=== PATIENT | male | born 1940 | race African-American/Black ===

== ENCOUNTER 2020-09-02 16:05 | Inpatient (IN) ==
[2020-09-02] MEDS ORDERED: SODIUM CHLORIDE 0.9% 1,000 ML IV STA (16:44)
[2020-09-02 17:01] LABS: Basophils % 0.1 % (0.0-0.8); Hematocrit 25.6 VOL% (42.0-52.0); Hemoglobin 8.2 GM/DL (14.0-18.0); Immature Granulocytes % 0.8 %; Immature Granulocytes Absolute 0.08 #; Lymphocytes # 1.3 10*3/uL (1.4-4.0); Lymphocytes % 13.4 % (21.2-54.2); Mean Corpuscular Volume 90.1 FL (87-102); Mean Platelet Volume 10.3 FL (9.6-12.0); Monocytes % 6.1 % (1.7-12.7); Neutrophils % 79.6 % (38.7-73.9); Platelet Count 195 T/CUMM (130-400); Red Blood Count 2.84 MC/CUMM (3.8-5.5); Red Cell Distribution Width 18.5 % (9.3-17.3); White Blood Count 9.8 T/CUMM (4-12)
[2020-09-02 17:17] LABS: Amorphous Crystals,Urine Occasional /HPF (Few); Bilirubin,Urine Negative (Negative); Blood, Urine Large mg/dL (Negative); Glucose,Urine (UA) Negative (Negative); Hyaline Casts,Urine 1 /LPF (0-3); Ketones,Urine Negative (Negative); Mucus,Urine Occasional /LPF (Occasional); Nitrite,Urine Negative (Negative); Protein,Urine 30 MG/DL; Urine Appearance CLOUDY (Clear); Urine Color Amber (Yellow); Urine Specific Gravity 1.016 (1.001-1.035); Urine Urobilinogen < 2.0 EU/DL (0.2-1.0); WBC,Urine 1 /HPF (0-6)
[2020-09-02 17:25] LABS: Albumin 2.9 G/DL (3.4-5.0); Bilirubin,Total 0.8 MG/DL (0.2-1.0); Calcium 8.6 MG/DL (8.5-10.1); Osmolality,Calculated 282.2 MOS/KG (273-304); Total Protein 7.2 G/DL (6.4-8.3)
[2020-09-02] MEDS ORDERED: GLUCAGON 1 MG VIAL IM PRN (18:41)
[2020-09-02] MEDS ORDERED: SODIUM CHLORIDE 0.9% 1,000 ML IV PRN (18:41)
[2020-09-02] MEDS ORDERED: DEXTROSE 50% 25 GM/50 ML VIAL IV PRN (18:41)
[2020-09-02] MEDS ORDERED: ONDANSETRON 4 MG/2 ML VIAL IV PRN (18:41)
[2020-09-02] MEDS ORDERED: DICLOFENAC SODIUM 75 MG TABLET PO PRN (18:59)
[2020-09-02] MEDS: BUDESONIDE/FORMOTEROL 160-4.5 INHALER 6 GM INH SCH (22:20)
[2020-09-02] MEDS: INSULIN REGULAR 100 UNIT/ML SUBCUT SCH (22:20)
[2020-09-03 01:02] LABS: Hematocrit 26.2 VOL% (42.0-52.0); Hemoglobin 8.3 GM/DL (14.0-18.0)
[2020-09-03] MEDS ORDERED: FUROSEMIDE 40 MG/4 ML VIAL IV ONE (03:18)
[2020-09-03 06:18] LABS: Hematocrit 29.8 VOL% (42.0-52.0); Hemoglobin 9.5 GM/DL (14.0-18.0)
[2020-09-03] MEDS: ALBUTEROL INHALER 18 GM INH SCH ×3 (06:25→18:38)
[2020-09-03 06:48] LABS: Albumin 2.5 G/DL (3.4-5.0); Bilirubin,Total 0.8 MG/DL (0.2-1.0); Calcium 8.3 MG/DL (8.5-10.1); Osmolality,Calculated 280.1 MOS/KG (273-304); Total Protein 6.7 G/DL (6.4-8.3)
[2020-09-03 07:04] LABS: Ferritin 4670.7 ng/ml (26-388)
[2020-09-03] MEDS: INSULIN REGULAR 100 UNIT/ML SUBCUT SCH ×4 (08:25→20:46)
[2020-09-03] MEDS ORDERED: amLODIPine 10 MG TABLET PO SCH (09:00)
[2020-09-03] MEDS ORDERED: DEXAMETHASONE 10 MG/1 ML VIAL IV SCH (09:00)
[2020-09-03] MEDS ORDERED: PANTOPRAZOLE 40 MG TABLET PO SCH (09:00)
[2020-09-03] MEDS: TERAZOSIN 5 MG CAPSULE PO SCH (09:22)
[2020-09-03] MEDS: BICALUTAMIDE 50 MG TABLET PO SCH (09:22)
[2020-09-03] MEDS: ASCORBIC ACID 500 MG TABLET PO SCH (09:22)
[2020-09-03] MEDS: lisinopriL 10 MG TABLET PO SCH (09:22)
[2020-09-03] MEDS: FUROSEMIDE 40 MG TABLET PO SCH (09:22)
[2020-09-03] MEDS: ZINC SULFATE 220 MG CAPSULE PO SCH (09:22)
[2020-09-03 13:14] LABS: Hematocrit 28.6 VOL% (42.0-52.0); Hemoglobin 9.4 GM/DL (14.0-18.0)
[2020-09-03] MEDS: BUDESONIDE/FORMOTEROL 160-4.5 INHALER 6 GM INH SCH ×2 (13:15→21:14)
[2020-09-03 20:03] LABS: Hematocrit 29.3 VOL% (42.0-52.0); Hemoglobin 9.6 GM/DL (14.0-18.0)
[2020-09-03] MEDS: ACETAMINOPHEN 325 MG TABLET PO PRN (21:14)
[2020-09-04] MEDS: ALBUTEROL INHALER 18 GM INH SCH ×4 (00:30→21:08)
[2020-09-04 08:20] LABS: Calcium 8.5 MG/DL (8.5-10.1)
[2020-09-04] MEDS: INSULIN REGULAR 100 UNIT/ML SUBCUT SCH ×5 (09:47→21:08)
[2020-09-04] MEDS: DEXAMETHASONE 4 MG/1 ML VIAL IV SCH (09:47)
[2020-09-04] MEDS: BICALUTAMIDE 50 MG TABLET PO SCH (09:47)
[2020-09-04] MEDS: TERAZOSIN 5 MG CAPSULE PO SCH (09:47)
[2020-09-04] MEDS: BUDESONIDE/FORMOTEROL 160-4.5 INHALER 6 GM INH SCH ×2 (09:48→21:08)
[2020-09-04] MEDS: PANTOPRAZOLE 40 MG VIAL IV SCH (09:48)
[2020-09-04] MEDS: ASCORBIC ACID 500 MG TABLET PO SCH (09:48)
[2020-09-04] MEDS: FUROSEMIDE 40 MG TABLET PO SCH (09:48)
[2020-09-04] MEDS ORDERED: TUBERCULIN SKIN TEST 0.1 ML SYRINGE INTRADERM ONE (10:33)
[2020-09-04] MEDS ORDERED: POLYETHYLENE GLYCOL POWDER 17 GM PACK PO SCH (12:00)
[2020-09-04] MEDS: POLYETHYLENE GLYCOL POWDER 17 GM PACK PO PRN (12:32)
[2020-09-05] MEDS: ALBUTEROL INHALER 18 GM INH SCH ×4 (01:47→20:10)
[2020-09-05 04:04] LABS: Hematocrit 28.9 VOL% (42.0-52.0); Hemoglobin 9.1 GM/DL (14.0-18.0); Immature Granulocytes % 2.4 %; Immature Granulocytes Absolute 0.21 #; Lymphocytes # 1.1 10*3/uL (1.4-4.0); Lymphocytes % 12.3 % (21.2-54.2); Mean Corpuscular HGB Conc 31.5 GM/DL (32-36); Mean Platelet Volume 10.5 FL (9.6-12.0); Monocytes % 5.4 % (1.7-12.7); Neutrophils % 79.9 % (38.7-73.9); Platelet Count 173 T/CUMM (130-400); Red Blood Count 3.21 MC/CUMM (3.8-5.5); Red Cell Distribution Width 17.6 % (9.3-17.3); White Blood Count 8.7 T/CUMM (4-12)
[2020-09-05 04:37] LABS: Calcium 8.6 MG/DL (8.5-10.1); Osmolality,Calculated 284.1 MOS/KG (273-304)
[2020-09-05 05:04] LABS: Band Neutrophils 2 % (0-10); Lymphocytes 7 % (20-55); Myelocytes 1 %; Segmented Neutrophils 82 % (50-85); Total Cells Counted 100
[2020-09-05 05:05] LABS: Hypochromasia 1+
[2020-09-05 05:11] LABS: Polychromasia Slight
[2020-09-05 05:12] LABS: Microcytosis 1+; Platelet Estimate Adequate
[2020-09-05] MEDS: ZIPRASIDONE 20 MG/1 ML VIAL IM PRN (05:25)
[2020-09-05] MEDS: BUDESONIDE/FORMOTEROL 160-4.5 INHALER 6 GM INH SCH ×2 (08:00→20:11)
[2020-09-05] MEDS: INSULIN REGULAR 100 UNIT/ML SUBCUT SCH ×4 (08:11→20:11)
[2020-09-05] MEDS ORDERED: LIDOCAINE 2% 5 ML VIAL ONE (09:00)
[2020-09-05] MEDS ORDERED: propofoL 200 MG/20 ML VIAL IV ONE (09:00)
[2020-09-05] MEDS ORDERED: ETOMIDATE 20 MG/10 ML VIAL IV ONE (09:00)
[2020-09-05] MEDS: DEXAMETHASONE 4 MG/1 ML VIAL IV SCH (09:50)
[2020-09-05] MEDS: PANTOPRAZOLE 40 MG VIAL IV SCH (09:50)
[2020-09-05] MEDS: TERAZOSIN 5 MG CAPSULE PO SCH (14:04)
[2020-09-05] MEDS: FUROSEMIDE 40 MG TABLET PO SCH (14:04)
[2020-09-05] MEDS: lisinopriL 10 MG TABLET PO SCH (14:04)
[2020-09-05] MEDS: BICALUTAMIDE 50 MG TABLET PO SCH (14:04)
[2020-09-05] MEDS: LACTATED RINGERS 1,000 ML IV SCH (14:04)
[2020-09-05] MEDS: ASCORBIC ACID 500 MG TABLET PO SCH (14:05)
[2020-09-05] MEDS: ZINC SULFATE 220 MG CAPSULE PO SCH (14:05)
[2020-09-05] MEDS: DESITIN 4OZ/NYSTATIN 15 GRAM MIXTURE PASTE TOP SCH ×2 (14:05→20:11)
[2020-09-06] MEDS: ALBUTEROL INHALER 18 GM INH SCH ×4 (00:46→18:30)
[2020-09-06 05:41] LABS: Hematocrit 27.3 VOL% (42.0-52.0); Hemoglobin 8.5 GM/DL (14.0-18.0); Immature Granulocytes % 1.7 %; Immature Granulocytes Absolute 0.11 #; Lymphocytes # 0.9 10*3/uL (1.4-4.0); Lymphocytes % 14.7 % (21.2-54.2); Mean Corpuscular HGB Conc 31.1 GM/DL (32-36); Mean Corpuscular Volume 92.5 FL (87-102); Monocytes % 5.4 % (1.7-12.7); Neutrophils % 78.2 % (38.7-73.9); Platelet Count 146 T/CUMM (130-400); Red Blood Count 2.95 MC/CUMM (3.8-5.5); Red Cell Distribution Width 17.8 % (9.3-17.3); White Blood Count 6.3 T/CUMM (4-12)
[2020-09-06 06:03] LABS: Albumin 2.3 G/DL (3.4-5.0); Bilirubin,Total 0.9 MG/DL (0.2-1.0); Calcium 8.5 MG/DL (8.5-10.1)
[2020-09-06 07:06] LABS: Band Neutrophils 2 % (0-10); Hypersegmented Neutrophil Few; Hypochromasia Slight; Lymphocytes 13 % (20-55); Metamyelocytes 2 %; Platelet Estimate Decreased; Segmented Neutrophils 80 % (50-85); Total Cells Counted 100
[2020-09-06] MEDS: TERAZOSIN 5 MG CAPSULE PO SCH (08:37)
[2020-09-06] MEDS: LACTATED RINGERS 1,000 ML IV SCH (08:37)
[2020-09-06] MEDS: lisinopriL 10 MG TABLET PO SCH (08:37)
[2020-09-06] MEDS: FUROSEMIDE 40 MG TABLET PO SCH (08:38)
[2020-09-06] MEDS: BICALUTAMIDE 50 MG TABLET PO SCH (08:38)
[2020-09-06] MEDS: PANTOPRAZOLE 40 MG VIAL IV SCH (08:38)
[2020-09-06] MEDS: DEXAMETHASONE 4 MG/1 ML VIAL IV SCH (08:38)
[2020-09-06] MEDS: ASCORBIC ACID 500 MG TABLET PO SCH (08:38)
[2020-09-06] MEDS: DESITIN 4OZ/NYSTATIN 15 GRAM MIXTURE PASTE TOP SCH ×2 (08:38→21:07)
[2020-09-06] MEDS: BUDESONIDE/FORMOTEROL 160-4.5 INHALER 6 GM INH SCH ×2 (08:39→21:06)
[2020-09-06] MEDS: INSULIN REGULAR 100 UNIT/ML SUBCUT SCH ×4 (09:32→21:08)
[2020-09-06] MEDS: ZIPRASIDONE 20 MG/1 ML VIAL IM PRN (20:19)
[2020-09-07] MEDS: ALBUTEROL INHALER 18 GM INH SCH ×4 (01:14→18:15)
[2020-09-07] MEDS: ACETAMINOPHEN 325 MG TABLET PO PRN ×3 (01:46→09:17)
[2020-09-07] MEDS: INSULIN REGULAR 100 UNIT/ML SUBCUT SCH ×4 (06:45→20:38)
[2020-09-07] MEDS: BICALUTAMIDE 50 MG TABLET PO SCH (08:39)
[2020-09-07] MEDS: ZINC SULFATE 220 MG CAPSULE PO SCH (08:39)
[2020-09-07] MEDS: ASCORBIC ACID 500 MG TABLET PO SCH (08:39)
[2020-09-07] MEDS: DEXAMETHASONE 4 MG/1 ML VIAL IV SCH (08:40)
[2020-09-07] MEDS: PANTOPRAZOLE 40 MG VIAL IV SCH (08:40)
[2020-09-07] MEDS: LACTATED RINGERS 1,000 ML IV SCH (08:41)
[2020-09-07] MEDS: BUDESONIDE/FORMOTEROL 160-4.5 INHALER 6 GM INH SCH ×2 (08:49→20:39)
[2020-09-07] MEDS: DESITIN 4OZ/NYSTATIN 15 GRAM MIXTURE PASTE TOP SCH ×2 (08:49→20:39)
[2020-09-07 08:58] LABS: Basophils % 0.2 % (0.0-0.8); Hematocrit 24.6 VOL% (42.0-52.0); Immature Granulocytes % 1.6 %; Lymphocytes # 0.9 10*3/uL (1.4-4.0); Lymphocytes % 13.8 % (21.2-54.2); Mean Corpuscular HGB Conc 32.5 GM/DL (32-36); Mean Corpuscular Volume 89.5 FL (87-102); Mean Platelet Volume 10.8 FL (9.6-12.0); Monocytes % 7.2 % (1.7-12.7); Neutrophils % 77.2 % (38.7-73.9); Platelet Count 156 T/CUMM (130-400); Red Blood Count 2.75 MC/CUMM (3.8-5.5); White Blood Count 6.2 T/CUMM (4-12)
[2020-09-07 09:27] LABS: Band Neutrophils 24 % (0-10); Lymphocytes 11 % (20-55); Macrocytosis 1+; Myelocytes 1 %; Platelet Estimate Normal; Segmented Neutrophils 59 % (50-85); Total Cells Counted 100
[2020-09-07 09:28] LABS: Anisocytosis 2+; Polychromasia Slight
[2020-09-07 09:36] LABS: Albumin 2.1 G/DL (3.4-5.0); Bilirubin,Total 1.9 MG/DL (0.2-1.0); Calcium 8.2 MG/DL (8.5-10.1); Total Protein 5.9 G/DL (6.4-8.3)
[2020-09-07] MEDS: TERAZOSIN 5 MG CAPSULE PO SCH ×2 (10:10→10:13)
[2020-09-07] MEDS: FUROSEMIDE 40 MG TABLET PO SCH ×2 (10:11→10:12)
[2020-09-07] MEDS: lisinopriL 10 MG TABLET PO SCH (10:12)
[2020-09-07 11:36] LABS: Bacteria,Urine Many /HPF (Few); Bilirubin,Urine Negative (Negative); Blood, Urine Negative (Negative); Glucose,Urine (UA) Negative (Negative); Hyaline Casts,Urine 1 /LPF (0-3); Ketones,Urine Negative (Negative); Mucus,Urine Occasional /LPF (Occasional); Nitrite,Urine Negative (Negative); Protein,Urine 30 MG/DL; RBC,Urine 3 /HPF (0-4); Squamous Epithelial Cell,Urine Occasional /HPF (0-10); Urine Appearance Slightly Hazy (Clear); Urine Color Amber (Yellow); Urine Specific Gravity 1.015 (1.001-1.035); WBC,Urine 153 /HPF (0-6)
[2020-09-07] MEDS: APIXABAN 2.5 MG TABLET PO SCH ×2 (12:06→20:39)
[2020-09-07] MEDS: PANTOPRAZOLE 40 MG TABLET PO SCH (20:39)
[2020-09-08] MEDS: ALBUTEROL INHALER 18 GM INH SCH ×4 (02:37→18:07)
[2020-09-08 04:08] LABS: Basophils % 0.1 % (0.0-0.8); Hematocrit 25.8 VOL% (42.0-52.0); Hemoglobin 8.3 GM/DL (14.0-18.0); Immature Granulocytes % 1.8 %; Immature Granulocytes Absolute 0.15 #; Lymphocytes # 0.9 10*3/uL (1.4-4.0); Lymphocytes % 10.8 % (21.2-54.2); Mean Corpuscular HGB Conc 32.2 GM/DL (32-36); Mean Corpuscular Volume 89.3 FL (87-102); Mean Platelet Volume 11.3 FL (9.6-12.0); Monocytes % 4.5 % (1.7-12.7); Neutrophils % 82.8 % (38.7-73.9); Platelet Count 189 T/CUMM (130-400); Red Blood Count 2.89 MC/CUMM (3.8-5.5); White Blood Count 8.2 T/CUMM (4-12)
[2020-09-08 04:25] LABS: Calcium 8.9 MG/DL (8.5-10.1); Osmolality,Calculated 291.8 MOS/KG (273-304)
[2020-09-08] MEDS: ACETAMINOPHEN 325 MG TABLET PO PRN (04:38)
[2020-09-08 05:03] LABS: Anisocytosis Slight; Band Neutrophils 4 % (0-10); Lymphocytes 11 % (20-55); Macrocytosis Slight; Metamyelocytes 2 %; Platelet Estimate Normal; Polychromasia Slight; Segmented Neutrophils 76 % (50-85); Total Cells Counted 100
[2020-09-08] MEDS: INSULIN REGULAR 100 UNIT/ML SUBCUT SCH ×4 (09:23→20:18)
[2020-09-08] MEDS: BICALUTAMIDE 50 MG TABLET PO SCH (09:24)
[2020-09-08] MEDS: DEXAMETHASONE 4 MG/1 ML VIAL IV SCH (09:24)
[2020-09-08] MEDS: APIXABAN 2.5 MG TABLET PO SCH ×2 (09:25→20:16)
[2020-09-08] MEDS: TERAZOSIN 5 MG CAPSULE PO SCH (09:25)
[2020-09-08] MEDS: PANTOPRAZOLE 40 MG TABLET PO SCH ×2 (09:25→20:18)
[2020-09-08] MEDS: FUROSEMIDE 40 MG TABLET PO SCH (09:25)
[2020-09-08] MEDS: BUDESONIDE/FORMOTEROL 160-4.5 INHALER 6 GM INH SCH ×2 (09:25→20:24)
[2020-09-08] MEDS: DESITIN 4OZ/NYSTATIN 15 GRAM MIXTURE PASTE TOP SCH ×2 (09:25→20:24)
[2020-09-08] MEDS: lisinopriL 10 MG TABLET PO SCH (09:25)
[2020-09-08] MEDS: ASCORBIC ACID 500 MG TABLET PO SCH (09:25)
[2020-09-08] MEDS: LORazepam 1 MG TABLET PO PRN (20:52)
[2020-09-09] MEDS: ALBUTEROL INHALER 18 GM INH SCH ×4 (00:49→22:21)
[2020-09-09 05:15] LABS: Basophils % 0.3 % (0.0-0.8); Hematocrit 22.1 VOL% (42.0-52.0); Hemoglobin 7.3 GM/DL (14.0-18.0); Immature Granulocytes % 1.5 %; Immature Granulocytes Absolute 0.13 #; Lymphocytes # 0.9 10*3/uL (1.4-4.0); Lymphocytes % 9.9 % (21.2-54.2); Mean Corpuscular Volume 87.7 FL (87-102); Monocytes % 4.5 % (1.7-12.7); Neutrophils % 83.8 % (38.7-73.9); Platelet Count 179 T/CUMM (130-400); Red Blood Count 2.52 MC/CUMM (3.8-5.5); Red Cell Distribution Width 18.5 % (9.3-17.3); White Blood Count 8.9 T/CUMM (4-12)
[2020-09-09 05:51] LABS: Band Neutrophils 1 % (0-10); Lymphocytes 15 % (20-55); Platelet Estimate Adequate; Segmented Neutrophils 78 % (50-85); Total Cells Counted 100
[2020-09-09 05:52] LABS: Hypochromasia Slight; Macrocytosis Slight
[2020-09-09] MEDS: PANTOPRAZOLE 40 MG TABLET PO SCH ×2 (08:13→22:22)
[2020-09-09] MEDS: TERAZOSIN 5 MG CAPSULE PO SCH (08:13)
[2020-09-09] MEDS: FUROSEMIDE 40 MG TABLET PO SCH (08:13)
[2020-09-09] MEDS: ASCORBIC ACID 500 MG TABLET PO SCH (08:13)
[2020-09-09] MEDS: ZINC SULFATE 220 MG CAPSULE PO SCH (08:13)
[2020-09-09] MEDS: BICALUTAMIDE 50 MG TABLET PO SCH (08:13)
[2020-09-09] MEDS: APIXABAN 2.5 MG TABLET PO SCH ×2 (08:13→22:22)
[2020-09-09] MEDS: lisinopriL 10 MG TABLET PO SCH (08:13)
[2020-09-09] MEDS: DEXAMETHASONE 4 MG/1 ML VIAL IV SCH (08:14)
[2020-09-09] MEDS: BUDESONIDE/FORMOTEROL 160-4.5 INHALER 6 GM INH SCH ×2 (08:14→22:22)
[2020-09-09] MEDS: DESITIN 4OZ/NYSTATIN 15 GRAM MIXTURE PASTE TOP SCH ×2 (08:14→22:22)
[2020-09-09] MEDS: cefTRIAXone 1,000 MG in SYRINGE 1 EACH IV SCH (09:16)
[2020-09-09] MEDS: INSULIN REGULAR 100 UNIT/ML SUBCUT SCH ×4 (09:17→22:22)
[2020-09-09] MEDS: ACETAMINOPHEN 325 MG TABLET PO PRN (09:18)
[2020-09-09] MEDS: metroNIDAZOLE INJ 500 MG in PREMIX 1 EACH IV SCH ×2 (16:08→23:31)
[2020-09-10] MEDS: ALBUTEROL INHALER 18 GM INH SCH ×4 (02:55→18:29)
[2020-09-10 03:50] LABS: Basophils % 0.1 % (0.0-0.8); Hematocrit 21.1 VOL% (42.0-52.0); Hemoglobin 6.7 GM/DL (14.0-18.0); Immature Granulocytes % 1.1 %; Immature Granulocytes Absolute 0.11 #; Lymphocytes # 0.9 10*3/uL (1.4-4.0); Lymphocytes % 8.6 % (21.2-54.2); Mean Corpuscular HGB Conc 31.8 GM/DL (32-36); Mean Corpuscular Volume 90.6 FL (87-102); Mean Platelet Volume 10.4 FL (9.6-12.0); Neutrophils % 85.2 % (38.7-73.9); Platelet Count 182 T/CUMM (130-400); Red Blood Count 2.33 MC/CUMM (3.8-5.5); Red Cell Distribution Width 18.9 % (9.3-17.3); White Blood Count 9.9 T/CUMM (4-12)
[2020-09-10 04:42] LABS: Anisocytosis 1+; Hypochromasia 1+; Lymphocytes 14 % (20-55); Macrocytosis 1+; Metamyelocytes 1 %; Segmented Neutrophils 82 % (50-85); Total Cells Counted 100
[2020-09-10 04:43] LABS: Ovalocytes Slight; Platelet Estimate Adequate; Tear Drop Cells Slight
[2020-09-10] MEDS: INSULIN REGULAR 100 UNIT/ML SUBCUT SCH ×4 (07:50→21:20)
[2020-09-10] MEDS ORDERED: SODIUM CHLORIDE 0.9% 1,000 ML IV PRN (08:27)
[2020-09-10 08:38] LABS: Bilirubin,Total 1.2 MG/DL (0.2-1.0); Calcium 8.8 MG/DL (8.5-10.1); Osmolality,Calculated 295.8 MOS/KG (273-304); Total Protein 6.3 G/DL (6.4-8.3)
[2020-09-10] MEDS: DESITIN 4OZ/NYSTATIN 15 GRAM MIXTURE PASTE TOP SCH ×2 (09:36→21:20)
[2020-09-10] MEDS: BUDESONIDE/FORMOTEROL 160-4.5 INHALER 6 GM INH SCH ×2 (09:36→21:20)
[2020-09-10] MEDS: lisinopriL 10 MG TABLET PO SCH (09:36)
[2020-09-10] MEDS: PANTOPRAZOLE 40 MG TABLET PO SCH ×2 (09:36→21:20)
[2020-09-10] MEDS: ASCORBIC ACID 500 MG TABLET PO SCH (09:36)
[2020-09-10] MEDS: FUROSEMIDE 40 MG TABLET PO SCH (09:36)
[2020-09-10] MEDS: DEXAMETHASONE 4 MG/1 ML VIAL IV SCH (09:36)
[2020-09-10] MEDS: cefTRIAXone 1,000 MG in SYRINGE 1 EACH IV SCH (09:36)
[2020-09-10] MEDS: BICALUTAMIDE 50 MG TABLET PO SCH (09:36)
[2020-09-10] MEDS: metroNIDAZOLE INJ 500 MG in PREMIX 1 EACH IV SCH ×2 (09:36→16:52)
[2020-09-10] MEDS: TERAZOSIN 5 MG CAPSULE PO SCH (09:36)
[2020-09-10] MEDS: APIXABAN 2.5 MG TABLET PO SCH (10:35)
[2020-09-10] MEDS: ACETAMINOPHEN 325 MG TABLET PO PRN (16:52)
[2020-09-10 17:35] LABS: Hematocrit 28.2 VOL% (42.0-52.0)
[2020-09-10 17:44] LABS: Hemoglobin 9.3 GM/DL (14.0-18.0)
[2020-09-11] MEDS: metroNIDAZOLE INJ 500 MG in PREMIX 1 EACH IV SCH ×3 (01:15→16:43)
[2020-09-11] MEDS: ALBUTEROL INHALER 18 GM INH SCH ×4 (01:15→18:06)
[2020-09-11 05:40] LABS: Hematocrit 26.6 VOL% (42.0-52.0); Immature Granulocytes % 1.9 %; Immature Granulocytes Absolute 0.21 #; Lymphocytes # 0.9 10*3/uL (1.4-4.0); Lymphocytes % 8.3 % (21.2-54.2); Mean Corpuscular HGB Conc 33.8 GM/DL (32-36); Mean Corpuscular Volume 87.5 FL (87-102); Mean Platelet Volume 10.1 FL (9.6-12.0); Monocytes % 3.7 % (1.7-12.7); Neutrophils % 86.1 % (38.7-73.9); Platelet Count 192 T/CUMM (130-400); Red Blood Count 3.04 MC/CUMM (3.8-5.5); White Blood Count 11.2 T/CUMM (4-12)
[2020-09-11 06:09] LABS: Band Neutrophils 6 % (0-10); Lymphocytes 2 % (20-55); Segmented Neutrophils 88 % (50-85); Total Cells Counted 100
[2020-09-11 06:10] LABS: Hypochromasia 1+; Microcytosis 1+
[2020-09-11] MEDS: INSULIN REGULAR 100 UNIT/ML SUBCUT SCH ×4 (08:14→20:04)
[2020-09-11] MEDS: cefTRIAXone 1,000 MG in SYRINGE 1 EACH IV SCH (08:54)
[2020-09-11] MEDS: DEXAMETHASONE 4 MG/1 ML VIAL IV SCH (08:54)
[2020-09-11] MEDS: DESITIN 4OZ/NYSTATIN 15 GRAM MIXTURE PASTE TOP SCH ×2 (08:55→20:06)
[2020-09-11] MEDS: BUDESONIDE/FORMOTEROL 160-4.5 INHALER 6 GM INH SCH ×2 (08:55→20:06)
[2020-09-11] MEDS: BICALUTAMIDE 50 MG TABLET PO SCH (10:13)
[2020-09-11] MEDS: TERAZOSIN 5 MG CAPSULE PO SCH (10:13)
[2020-09-11] MEDS: FUROSEMIDE 40 MG TABLET PO SCH (10:13)
[2020-09-11] MEDS: PANTOPRAZOLE 40 MG TABLET PO SCH ×2 (10:13→20:06)
[2020-09-11] MEDS: lisinopriL 10 MG TABLET PO SCH (10:13)
[2020-09-11] MEDS: ASCORBIC ACID 500 MG TABLET PO SCH (10:13)
[2020-09-11] MEDS: ZINC SULFATE 220 MG CAPSULE PO SCH (10:13)
[2020-09-11] MEDS ORDERED: LIDOCAINE 2% 5 ML VIAL ONE (10:25)
[2020-09-11] MEDS ORDERED: fentaNYL 100 MCG/2 ML VIAL ONE (10:25)
[2020-09-11] MEDS ORDERED: propofoL 200 MG/20 ML VIAL IV ONE (10:25)
[2020-09-11] MEDS ORDERED: ONDANSETRON 4 MG/2 ML VIAL ONE (10:25)
[2020-09-11] MEDS ORDERED: ETOMIDATE 40 MG/20 ML VIAL IV ONE (10:25)
[2020-09-11] MEDS ORDERED: SUCCINYLCHOLINE 200 MG/10 ML VIAL ONE (10:26)
[2020-09-11] MEDS: ACETAMINOPHEN 325 MG TABLET PO PRN (20:06)
[2020-09-11] MEDS: MORPHINE 4 MG/1 ML VIAL IV PRN (20:06)
[2020-09-12] MEDS: ACETAMINOPHEN 325 MG TABLET PO PRN ×3 (00:24→21:26)
[2020-09-12] MEDS: ALBUTEROL INHALER 18 GM INH SCH ×4 (00:24→19:45)
[2020-09-12] MEDS: MORPHINE 4 MG/1 ML VIAL IV PRN ×2 (00:24→04:26)
[2020-09-12] MEDS: metroNIDAZOLE INJ 500 MG in PREMIX 1 EACH IV SCH ×3 (00:24→16:02)
[2020-09-12 05:11] LABS: Basophils % 0.1 % (0.0-0.8); Eosinophils % 0.1 % (0.00-10.9); Hematocrit 27.2 VOL% (42.0-52.0); Hemoglobin 8.9 GM/DL (14.0-18.0); Immature Granulocytes % 2.3 %; Immature Granulocytes Absolute 0.22 #; Lymphocytes # 0.9 10*3/uL (1.4-4.0); Lymphocytes % 9.5 % (21.2-54.2); Mean Corpuscular HGB Conc 32.7 GM/DL (32-36); Mean Platelet Volume 9.7 FL (9.6-12.0); Monocytes % 4.2 % (1.7-12.7); Neutrophils % 83.8 % (38.7-73.9); Platelet Count 166 T/CUMM (130-400); Red Blood Count 3.09 MC/CUMM (3.8-5.5); Red Cell Distribution Width 17.9 % (9.3-17.3); White Blood Count 9.4 T/CUMM (4-12)
[2020-09-12 05:32] LABS: Hypochromasia 1+; Lymphocytes 8 % (20-55); Microcytosis 1+; Platelet Estimate Adequate; Segmented Neutrophils 85 % (50-85); Total Cells Counted 100
[2020-09-12 05:33] LABS: Calcium 8.8 MG/DL (8.5-10.1); Osmolality,Calculated 294.4 MOS/KG (273-304)
[2020-09-12] MEDS: INSULIN REGULAR 100 UNIT/ML SUBCUT SCH ×4 (08:09→21:02)
[2020-09-12] MEDS: BICALUTAMIDE 50 MG TABLET PO SCH (09:12)
[2020-09-12] MEDS: FUROSEMIDE 40 MG TABLET PO SCH (09:12)
[2020-09-12] MEDS: DEXAMETHASONE 4 MG/1 ML VIAL IV SCH (09:12)
[2020-09-12] MEDS: PANTOPRAZOLE 40 MG TABLET PO SCH ×2 (09:12→21:25)
[2020-09-12] MEDS: lisinopriL 10 MG TABLET PO SCH (09:12)
[2020-09-12] MEDS: TERAZOSIN 5 MG CAPSULE PO SCH (09:12)
[2020-09-12] MEDS: BUDESONIDE/FORMOTEROL 160-4.5 INHALER 6 GM INH SCH ×2 (09:13→21:25)
[2020-09-12] MEDS: DESITIN 4OZ/NYSTATIN 15 GRAM MIXTURE PASTE TOP SCH ×2 (09:13→21:25)
[2020-09-12] MEDS: ASCORBIC ACID 500 MG TABLET PO SCH (09:13)
[2020-09-12] MEDS: cefTRIAXone 1,000 MG in SYRINGE 1 EACH IV SCH (09:13)
[2020-09-12] MEDS: NYSTATIN 500,000 UNIT/5 ML UDCUP SWISH/SWAL SCH ×2 (17:33→21:27)
[2020-09-12] MEDS: LORazepam 1 MG TABLET PO PRN (21:26)
[2020-09-13] MEDS: ALBUTEROL INHALER 18 GM INH SCH ×4 (00:52→18:06)
[2020-09-13] MEDS: metroNIDAZOLE INJ 500 MG in PREMIX 1 EACH IV SCH ×3 (00:52→16:17)
[2020-09-13] MEDS: INSULIN REGULAR 100 UNIT/ML SUBCUT SCH ×4 (08:57→20:35)
[2020-09-13] MEDS: cefTRIAXone 1,000 MG in SYRINGE 1 EACH IV SCH (08:58)
[2020-09-13] MEDS: FUROSEMIDE 40 MG TABLET PO SCH (08:59)
[2020-09-13] MEDS: BICALUTAMIDE 50 MG TABLET PO SCH (08:59)
[2020-09-13] MEDS: lisinopriL 10 MG TABLET PO SCH (08:59)
[2020-09-13] MEDS: ZINC SULFATE 220 MG CAPSULE PO SCH (08:59)
[2020-09-13] MEDS: DEXAMETHASONE 4 MG/1 ML VIAL IV SCH (08:59)
[2020-09-13] MEDS: NYSTATIN 500,000 UNIT/5 ML UDCUP SWISH/SWAL SCH ×4 (08:59→20:35)
[2020-09-13] MEDS: TERAZOSIN 5 MG CAPSULE PO SCH (08:59)
[2020-09-13] MEDS: ASCORBIC ACID 500 MG TABLET PO SCH (08:59)
[2020-09-13] MEDS: PANTOPRAZOLE 40 MG TABLET PO SCH ×2 (08:59→20:35)
[2020-09-13] MEDS: SODIUM HYPOCHLORITE 0.25% IRRIG 473 ML BOTTLE TOP SCH (09:00)
[2020-09-13] MEDS: DESITIN 4OZ/NYSTATIN 15 GRAM MIXTURE PASTE TOP SCH ×2 (09:00→20:36)
[2020-09-13] MEDS: BUDESONIDE/FORMOTEROL 160-4.5 INHALER 6 GM INH SCH ×2 (09:00→20:36)
[2020-09-13] MEDS: LORazepam 1 MG TABLET PO PRN (20:36)
[2020-09-13] MEDS: ACETAMINOPHEN 325 MG TABLET PO PRN (20:36)
[2020-09-14] MEDS: metroNIDAZOLE INJ 500 MG in PREMIX 1 EACH IV SCH ×3 (00:46→16:50)
[2020-09-14] MEDS: ALBUTEROL INHALER 18 GM INH SCH ×4 (01:09→18:02)
[2020-09-14 05:45] LABS: Eosinophils % 0.3 % (0.00-10.9); Hematocrit 23.4 VOL% (42.0-52.0); Hemoglobin 7.6 GM/DL (14.0-18.0); Immature Granulocytes % 1.7 %; Immature Granulocytes Absolute 0.16 #; Lymphocytes # 1.2 10*3/uL (1.4-4.0); Mean Corpuscular HGB Conc 32.5 GM/DL (32-36); Mean Corpuscular Volume 89.3 FL (87-102); Mean Platelet Volume 10.6 FL (9.6-12.0); Monocytes % 3.8 % (1.7-12.7); Neutrophils % 81.2 % (38.7-73.9); Platelet Count 156 T/CUMM (130-400); Red Blood Count 2.62 MC/CUMM (3.8-5.5); Red Cell Distribution Width 17.9 % (9.3-17.3); White Blood Count 9.5 T/CUMM (4-12)
[2020-09-14 05:57] LABS: Calcium 8.6 MG/DL (8.5-10.1); Osmolality,Calculated 285.4 MOS/KG (273-304)
[2020-09-14 06:25] LABS: Eosinophils 1 % (0-10); Hypochromasia 1+; Lymphocytes 11 % (20-55); Nucleated Red Blood Cells 1 (0-5); Segmented Neutrophils 84 % (50-85); Total Cells Counted 100
[2020-09-14 06:26] LABS: Microcytosis 1+; Ovalocytes Slight; Tear Drop Cells Slight
[2020-09-14 06:27] LABS: Platelet Estimate Adequate
[2020-09-14] MEDS: cefTRIAXone 1,000 MG in SYRINGE 1 EACH IV SCH (08:29)
[2020-09-14] MEDS: DEXAMETHASONE 4 MG/1 ML VIAL IV SCH (08:29)
[2020-09-14] MEDS: ACETAMINOPHEN 325 MG TABLET PO PRN ×2 (08:30→21:27)
[2020-09-14] MEDS: BICALUTAMIDE 50 MG TABLET PO SCH (08:30)
[2020-09-14] MEDS: NYSTATIN 500,000 UNIT/5 ML UDCUP SWISH/SWAL SCH ×4 (08:30→21:26)
[2020-09-14] MEDS: FUROSEMIDE 40 MG TABLET PO SCH (08:31)
[2020-09-14] MEDS: ASCORBIC ACID 500 MG TABLET PO SCH (08:31)
[2020-09-14] MEDS: PANTOPRAZOLE 40 MG TABLET PO SCH ×2 (08:31→21:26)
[2020-09-14] MEDS: INSULIN REGULAR 100 UNIT/ML SUBCUT SCH ×4 (08:32→20:57)
[2020-09-14] MEDS: DESITIN 4OZ/NYSTATIN 15 GRAM MIXTURE PASTE TOP SCH ×2 (08:33→21:26)
[2020-09-14] MEDS: lisinopriL 10 MG TABLET PO SCH (08:33)
[2020-09-14] MEDS: TERAZOSIN 5 MG CAPSULE PO SCH (08:33)
[2020-09-14] MEDS: BUDESONIDE/FORMOTEROL 160-4.5 INHALER 6 GM INH SCH ×2 (08:33→21:26)
[2020-09-14] MEDS: SODIUM HYPOCHLORITE 0.25% IRRIG 473 ML BOTTLE TOP SCH (13:33)
[2020-09-14] MEDS: FLUTICASONE 50 MCG NASAL SPRAY 16 GM BOTTLE BOTH NARES SCH ×2 (13:34→21:26)
[2020-09-14] MEDS: LORazepam 1 MG TABLET PO PRN (21:27)
[2020-09-15] MEDS: metroNIDAZOLE INJ 500 MG in PREMIX 1 EACH IV SCH ×3 (00:30→16:59)
[2020-09-15] MEDS: ALBUTEROL INHALER 18 GM INH SCH ×5 (00:30→18:23)
[2020-09-15 05:11] LABS: Basophils % 0.1 % (0.0-0.8); Eosinophils % 0.4 % (0.00-10.9); Immature Granulocytes % 1.8 %; Immature Granulocytes Absolute 0.15 #; Lymphocytes # 1.2 10*3/uL (1.4-4.0); Lymphocytes % 14.5 % (21.2-54.2); Mean Corpuscular Volume 92.3 FL (87-102); Mean Platelet Volume 10.3 FL (9.6-12.0); Monocytes % 4.2 % (1.7-12.7); Platelet Count 156 T/CUMM (130-400); Red Blood Count 2.71 MC/CUMM (3.8-5.5); Red Cell Distribution Width 17.8 % (9.3-17.3); White Blood Count 8.6 T/CUMM (4-12)
[2020-09-15 05:36] LABS: Calcium 8.5 MG/DL (8.5-10.1); Osmolality,Calculated 294.1 MOS/KG (273-304)
[2020-09-15] MEDS: INSULIN REGULAR 100 UNIT/ML SUBCUT SCH ×4 (07:54→20:53)
[2020-09-15] MEDS: ASCORBIC ACID 500 MG TABLET PO SCH (08:48)
[2020-09-15] MEDS: PANTOPRAZOLE 40 MG TABLET PO SCH ×2 (08:48→21:15)
[2020-09-15] MEDS: BICALUTAMIDE 50 MG TABLET PO SCH (08:48)
[2020-09-15] MEDS: ZINC SULFATE 220 MG CAPSULE PO SCH (08:49)
[2020-09-15] MEDS: cefTRIAXone 1,000 MG in SYRINGE 1 EACH IV SCH (08:49)
[2020-09-15] MEDS: DEXAMETHASONE 4 MG/1 ML VIAL IV SCH (08:49)
[2020-09-15] MEDS: FUROSEMIDE 40 MG TABLET PO SCH (08:50)
[2020-09-15] MEDS: BUDESONIDE/FORMOTEROL 160-4.5 INHALER 6 GM INH SCH ×2 (08:50→21:25)
[2020-09-15] MEDS: lisinopriL 10 MG TABLET PO SCH (08:50)
[2020-09-15] MEDS: TERAZOSIN 5 MG CAPSULE PO SCH (08:50)
[2020-09-15] MEDS: FLUTICASONE 50 MCG NASAL SPRAY 16 GM BOTTLE BOTH NARES SCH ×2 (08:51→21:15)
[2020-09-15] MEDS: DESITIN 4OZ/NYSTATIN 15 GRAM MIXTURE PASTE TOP SCH ×2 (08:51→21:25)
[2020-09-15] MEDS: SODIUM HYPOCHLORITE 0.25% IRRIG 473 ML BOTTLE TOP SCH (08:51)
[2020-09-15] MEDS: NYSTATIN 500,000 UNIT/5 ML UDCUP SWISH/SWAL SCH ×5 (08:52→21:15)
[2020-09-16] MEDS: metroNIDAZOLE INJ 500 MG in PREMIX 1 EACH IV SCH ×3 (00:19→17:10)
[2020-09-16] MEDS: ALBUTEROL INHALER 18 GM INH SCH ×4 (01:20→18:40)
[2020-09-16 05:54] LABS: Basophils % 0.1 % (0.0-0.8); Eosinophils % 0.4 % (0.00-10.9); Hematocrit 23.4 VOL% (42.0-52.0); Hemoglobin 7.4 GM/DL (14.0-18.0); Immature Granulocytes % 1.4 %; Immature Granulocytes Absolute 0.15 #; Lymphocytes # 1.5 10*3/uL (1.4-4.0); Lymphocytes % 14.1 % (21.2-54.2); Mean Corpuscular HGB Conc 31.6 GM/DL (32-36); Mean Corpuscular Volume 91.8 FL (87-102); Mean Platelet Volume 10.3 FL (9.6-12.0); Monocytes % 4.6 % (1.7-12.7); Neutrophils % 79.4 % (38.7-73.9); Platelet Count 164 T/CUMM (130-400); Red Blood Count 2.55 MC/CUMM (3.8-5.5); Red Cell Distribution Width 17.8 % (9.3-17.3); White Blood Count 10.4 T/CUMM (4-12)
[2020-09-16 06:12] LABS: Calcium 8.4 MG/DL (8.5-10.1)
[2020-09-16] MEDS: INSULIN REGULAR 100 UNIT/ML SUBCUT SCH ×4 (08:51→22:30)
[2020-09-16] MEDS: BICALUTAMIDE 50 MG TABLET PO SCH (08:51)
[2020-09-16] MEDS: SODIUM HYPOCHLORITE 0.25% IRRIG 473 ML BOTTLE TOP SCH (08:51)
[2020-09-16] MEDS: lisinopriL 10 MG TABLET PO SCH (08:52)
[2020-09-16] MEDS: cefTRIAXone 1,000 MG in SYRINGE 1 EACH IV SCH (08:52)
[2020-09-16] MEDS: PANTOPRAZOLE 40 MG TABLET PO SCH ×2 (08:52→22:30)
[2020-09-16] MEDS: ASCORBIC ACID 500 MG TABLET PO SCH (08:52)
[2020-09-16] MEDS: BUDESONIDE/FORMOTEROL 160-4.5 INHALER 6 GM INH SCH ×2 (08:52→22:30)
[2020-09-16] MEDS: FUROSEMIDE 40 MG TABLET PO SCH (08:52)
[2020-09-16] MEDS: DESITIN 4OZ/NYSTATIN 15 GRAM MIXTURE PASTE TOP SCH ×2 (08:52→22:30)
[2020-09-16] MEDS: DEXAMETHASONE 4 MG/1 ML VIAL IV SCH (08:52)
[2020-09-16] MEDS: FLUTICASONE 50 MCG NASAL SPRAY 16 GM BOTTLE BOTH NARES SCH ×2 (08:52→22:30)
[2020-09-16] MEDS: TERAZOSIN 5 MG CAPSULE PO SCH (08:52)
[2020-09-16] MEDS: NYSTATIN 500,000 UNIT/5 ML UDCUP SWISH/SWAL SCH ×4 (08:52→22:30)
[2020-09-17] MEDS: metroNIDAZOLE INJ 500 MG in PREMIX 1 EACH IV SCH ×3 (00:23→16:38)
[2020-09-17] MEDS: ALBUTEROL INHALER 18 GM INH SCH ×4 (00:30→21:49)
[2020-09-17 06:38] LABS: Basophils % 0.1 % (0.0-0.8); Eosinophils % 0.3 % (0.00-10.9); Hematocrit 23.2 VOL% (42.0-52.0); Hemoglobin 7.3 GM/DL (14.0-18.0); Lymphocytes # 1.4 10*3/uL (1.4-4.0); Lymphocytes % 14.3 % (21.2-54.2); Mean Corpuscular HGB Conc 31.5 GM/DL (32-36); Mean Corpuscular Volume 93.2 FL (87-102); Mean Platelet Volume 11.1 FL (9.6-12.0); Monocytes % 5.6 % (1.7-12.7); NRBC # 0.02 10*3/uL; Neutrophils % 78.7 % (38.7-73.9); Platelet Count 160 T/CUMM (130-400); Red Blood Count 2.49 MC/CUMM (3.8-5.5); Red Cell Distribution Width 17.6 % (9.3-17.3); White Blood Count 9.9 T/CUMM (4-12)
[2020-09-17 06:57] LABS: Calcium 8.4 MG/DL (8.5-10.1); Osmolality,Calculated 289.3 MOS/KG (273-304)
[2020-09-17] MEDS: INSULIN REGULAR 100 UNIT/ML SUBCUT SCH ×4 (08:09→21:49)
[2020-09-17] MEDS: SODIUM HYPOCHLORITE 0.25% IRRIG 473 ML BOTTLE TOP SCH (09:37)
[2020-09-17] MEDS: DESITIN 4OZ/NYSTATIN 15 GRAM MIXTURE PASTE TOP SCH ×2 (09:37→21:50)
[2020-09-17] MEDS: FLUTICASONE 50 MCG NASAL SPRAY 16 GM BOTTLE BOTH NARES SCH ×2 (09:38→21:49)
[2020-09-17] MEDS: cefTRIAXone 1,000 MG in SYRINGE 1 EACH IV SCH (09:38)
[2020-09-17] MEDS: BUDESONIDE/FORMOTEROL 160-4.5 INHALER 6 GM INH SCH ×2 (09:39→21:50)
[2020-09-17] MEDS: BICALUTAMIDE 50 MG TABLET PO SCH (09:39)
[2020-09-17] MEDS: DEXAMETHASONE 4 MG/1 ML VIAL IV SCH (09:39)
[2020-09-17] MEDS: TERAZOSIN 5 MG CAPSULE PO SCH (09:39)
[2020-09-17] MEDS: PANTOPRAZOLE 40 MG TABLET PO SCH ×2 (09:39→21:50)
[2020-09-17] MEDS: ZINC SULFATE 220 MG CAPSULE PO SCH (09:39)
[2020-09-17] MEDS: lisinopriL 10 MG TABLET PO SCH (09:39)
[2020-09-17] MEDS: NYSTATIN 500,000 UNIT/5 ML UDCUP SWISH/SWAL SCH ×4 (09:39→21:50)
[2020-09-17] MEDS: FUROSEMIDE 40 MG TABLET PO SCH (09:39)
[2020-09-17] MEDS: ASCORBIC ACID 500 MG TABLET PO SCH (09:39)
[2020-09-17] MEDS ORDERED: SODIUM CHLORIDE 0.9% 1,000 ML IV PRN (13:39)
[2020-09-18] MEDS: metroNIDAZOLE INJ 500 MG in PREMIX 1 EACH IV SCH ×3 (00:34→12:37)
[2020-09-18] MEDS: ALBUTEROL INHALER 18 GM INH SCH ×4 (00:35→20:05)
[2020-09-18 06:37] LABS: Basophils % 0.1 % (0.0-0.8); Eosinophils % 0.2 % (0.00-10.9); Hematocrit 28.5 VOL% (42.0-52.0); Lymphocytes # 1.5 10*3/uL (1.4-4.0); Lymphocytes % 14.7 % (21.2-54.2); Mean Corpuscular HGB Conc 32.3 GM/DL (32-36); Mean Corpuscular Volume 91.9 FL (87-102); Mean Platelet Volume 10.3 FL (9.6-12.0); Monocytes % 6.4 % (1.7-12.7); NRBC # 0.02 10*3/uL; Neutrophils % 77.6 % (38.7-73.9); Platelet Count 140 T/CUMM (130-400)
[2020-09-18 06:40] LABS: Hemoglobin 9.2 GM/DL (14.0-18.0)
[2020-09-18 06:42] LABS: Calcium 8.4 MG/DL (8.5-10.1)
[2020-09-18] MEDS: cefTRIAXone 1,000 MG in SYRINGE 1 EACH IV SCH ×2 (09:29→12:38)
[2020-09-18] MEDS: INSULIN REGULAR 100 UNIT/ML SUBCUT SCH ×4 (09:29→20:05)
[2020-09-18] MEDS: DEXAMETHASONE 4 MG/1 ML VIAL IV SCH ×2 (09:30→12:37)
[2020-09-18] MEDS: ASCORBIC ACID 500 MG TABLET PO SCH (09:30)
[2020-09-18] MEDS: FLUTICASONE 50 MCG NASAL SPRAY 16 GM BOTTLE BOTH NARES SCH ×2 (09:30→20:05)
[2020-09-18] MEDS: BICALUTAMIDE 50 MG TABLET PO SCH (09:30)
[2020-09-18] MEDS: FUROSEMIDE 40 MG TABLET PO SCH (09:30)
[2020-09-18] MEDS: NYSTATIN 500,000 UNIT/5 ML UDCUP SWISH/SWAL SCH ×4 (09:30→20:06)
[2020-09-18] MEDS: PANTOPRAZOLE 40 MG TABLET PO SCH ×2 (09:30→20:06)
[2020-09-18] MEDS: TERAZOSIN 5 MG CAPSULE PO SCH (09:30)
[2020-09-18] MEDS: lisinopriL 10 MG TABLET PO SCH (09:31)
[2020-09-18] MEDS: BUDESONIDE/FORMOTEROL 160-4.5 INHALER 6 GM INH SCH ×2 (09:31→20:06)
[2020-09-18] MEDS: DESITIN 4OZ/NYSTATIN 15 GRAM MIXTURE PASTE TOP SCH ×2 (09:31→20:06)
[2020-09-18] MEDS ORDERED: FUROSEMIDE 20 MG TABLET PO ONE (11:48)
[2020-09-18] MEDS: LEVOFLOXACIN 500 MG TABLET PO SCH (11:52)
[2020-09-18] MEDS: MORPHINE 4 MG/1 ML VIAL IV PRN ×2 (13:28→17:32)
[2020-09-18] MEDS: SODIUM HYPOCHLORITE 0.25% IRRIG 473 ML BOTTLE TOP SCH (14:30)
[2020-09-18] MEDS: ENOXAPARIN 100 MG/ML SYRINGE SUBCUT SCH (16:31)
[2020-09-18] MEDS: ACETAMINOPHEN 325 MG TABLET PO PRN (20:09)
[2020-09-19] MEDS: ALBUTEROL INHALER 18 GM INH SCH ×4 (01:44→18:06)
[2020-09-19 05:03] LABS: Basophils % 0.1 % (0.0-0.8); Calcium 8.7 MG/DL (8.5-10.1); Eosinophils % 0.2 % (0.00-10.9); Hematocrit 32.9 VOL% (42.0-52.0); Hemoglobin 10.5 GM/DL (14.0-18.0); Immature Granulocytes % 0.7 %; Immature Granulocytes Absolute 0.09 #; Lymphocytes # 1.6 10*3/uL (1.4-4.0); Mean Corpuscular HGB Conc 31.9 GM/DL (32-36); Mean Corpuscular Volume 92.4 FL (87-102); Monocytes % 6.3 % (1.7-12.7); NRBC # 0.03 10*3/uL; Neutrophils % 79.7 % (38.7-73.9); Platelet Count 130 T/CUMM (130-400); Red Blood Count 3.56 MC/CUMM (3.8-5.5); Red Cell Distribution Width 17.2 % (9.3-17.3); White Blood Count 12.4 T/CUMM (4-12)
[2020-09-19 05:28] LABS: Hypochromasia 1+; Microcytosis 1+
[2020-09-19] MEDS: ENOXAPARIN 100 MG/ML SYRINGE SUBCUT SCH ×2 (05:28→16:10)
[2020-09-19] MEDS: TERAZOSIN 5 MG CAPSULE PO SCH (08:58)
[2020-09-19] MEDS: lisinopriL 10 MG TABLET PO SCH (08:58)
[2020-09-19] MEDS: FUROSEMIDE 40 MG TABLET PO SCH (09:00)
[2020-09-19] MEDS: ZINC SULFATE 220 MG CAPSULE PO SCH (09:01)
[2020-09-19] MEDS: PANTOPRAZOLE 40 MG TABLET PO SCH ×2 (09:02→20:24)
[2020-09-19] MEDS: NYSTATIN 500,000 UNIT/5 ML UDCUP SWISH/SWAL SCH ×4 (09:02→20:24)
[2020-09-19] MEDS: LEVOFLOXACIN 500 MG TABLET PO SCH (09:02)
[2020-09-19] MEDS: ASCORBIC ACID 500 MG TABLET PO SCH (09:02)
[2020-09-19] MEDS: FLUTICASONE 50 MCG NASAL SPRAY 16 GM BOTTLE BOTH NARES SCH ×2 (09:06→20:53)
[2020-09-19] MEDS: DESITIN 4OZ/NYSTATIN 15 GRAM MIXTURE PASTE TOP SCH ×2 (09:06→20:53)
[2020-09-19] MEDS: BICALUTAMIDE 50 MG TABLET PO SCH (09:06)
[2020-09-19] MEDS: SODIUM HYPOCHLORITE 0.25% IRRIG 473 ML BOTTLE TOP SCH (09:06)
[2020-09-19] MEDS: BUDESONIDE/FORMOTEROL 160-4.5 INHALER 6 GM INH SCH ×2 (09:07→20:53)
[2020-09-19] MEDS: INSULIN REGULAR 100 UNIT/ML SUBCUT SCH ×4 (09:17→20:53)
[2020-09-19 18:39] LABS: Amorphous Crystals,Urine Occasional /HPF (Few); Bilirubin,Urine Negative (Negative); Blood, Urine Negative (Negative); Glucose,Urine (UA) Negative (Negative); Ketones,Urine Negative (Negative); Nitrite,Urine Negative (Negative); Protein,Urine 30 MG/DL; RBC,Urine 6 /HPF (0-4); Squamous Epithelial Cell,Urine Occasional /HPF (0-10); Urine Appearance Slightly Hazy (Clear); Urine Color Amber (Yellow); Urine Specific Gravity 1.027 (1.001-1.035); WBC,Urine 1 /HPF (0-6)
[2020-09-20] MEDS: MORPHINE 4 MG/1 ML VIAL IV PRN (00:15)
[2020-09-20] MEDS: ALBUTEROL INHALER 18 GM INH SCH ×4 (00:15→21:43)
[2020-09-20] MEDS: ENOXAPARIN 100 MG/ML SYRINGE SUBCUT SCH (03:28)
[2020-09-20 06:20] LABS: Basophils % 0.2 % (0.0-0.8); Eosinophils % 0.2 % (0.00-10.9); Hematocrit 30.9 VOL% (42.0-52.0); Immature Granulocytes % 0.6 %; Immature Granulocytes Absolute 0.07 #; Lymphocytes # 1.4 10*3/uL (1.4-4.0); Lymphocytes % 12.4 % (21.2-54.2); Mean Corpuscular HGB Conc 32.4 GM/DL (32-36); Mean Platelet Volume 10.8 FL (9.6-12.0); Monocytes % 7.4 % (1.7-12.7); NRBC # 0.02 10*3/uL; Neutrophils % 79.2 % (38.7-73.9); Platelet Count 124 T/CUMM (130-400); Red Blood Count 3.36 MC/CUMM (3.8-5.5); Red Cell Distribution Width 17.1 % (9.3-17.3); White Blood Count 11.1 T/CUMM (4-12)
[2020-09-20] MEDS: INSULIN REGULAR 100 UNIT/ML SUBCUT SCH ×4 (07:54→20:16)
[2020-09-20 09:21] LABS: Elliptocytes Few; Target Cells 1+
[2020-09-20 09:24] LABS: Anisocytosis 2+; Platelet Estimate Adequate; Polychromasia Slight
[2020-09-20] MEDS: BICALUTAMIDE 50 MG TABLET PO SCH (09:37)
[2020-09-20] MEDS: NYSTATIN 500,000 UNIT/5 ML UDCUP SWISH/SWAL SCH ×4 (09:37→21:43)
[2020-09-20] MEDS: BUDESONIDE/FORMOTEROL 160-4.5 INHALER 6 GM INH SCH ×2 (09:37→21:50)
[2020-09-20] MEDS: SODIUM HYPOCHLORITE 0.25% IRRIG 473 ML BOTTLE TOP SCH (09:37)
[2020-09-20] MEDS: DESITIN 4OZ/NYSTATIN 15 GRAM MIXTURE PASTE TOP SCH ×2 (09:37→21:43)
[2020-09-20] MEDS: LEVOFLOXACIN 500 MG TABLET PO SCH (09:37)
[2020-09-20] MEDS: FLUTICASONE 50 MCG NASAL SPRAY 16 GM BOTTLE BOTH NARES SCH ×2 (09:37→21:43)
[2020-09-20] MEDS: ASCORBIC ACID 500 MG TABLET PO SCH (09:37)
[2020-09-20] MEDS: PANTOPRAZOLE 40 MG TABLET PO SCH ×2 (09:37→21:43)
[2020-09-20] MEDS: POLYETHYLENE GLYCOL POWDER 17 GM PACK PO PRN (09:55)
[2020-09-20] MEDS: APIXABAN 5 MG TABLET PO SCH (21:43)
[2020-09-21] MEDS: ALBUTEROL INHALER 18 GM INH SCH ×4 (01:56→20:00)
[2020-09-21 06:23] LABS: Basophils % 0.1 % (0.0-0.8); Eosinophils % 0.4 % (0.00-10.9); Hematocrit 30.1 VOL% (42.0-52.0); Hemoglobin 9.8 GM/DL (14.0-18.0); Immature Granulocytes % 0.6 %; Immature Granulocytes Absolute 0.06 #; Lymphocytes # 1.6 10*3/uL (1.4-4.0); Mean Corpuscular HGB Conc 32.6 GM/DL (32-36); Mean Platelet Volume 10.3 FL (9.6-12.0); Monocytes % 6.9 % (1.7-12.7); Platelet Count 122 T/CUMM (130-400); Red Blood Count 3.27 MC/CUMM (3.8-5.5); Red Cell Distribution Width 17.2 % (9.3-17.3)
[2020-09-21 06:42] LABS: Calcium 8.4 MG/DL (8.5-10.1); Osmolality,Calculated 287.1 MOS/KG (273-304)
[2020-09-21] MEDS: INSULIN REGULAR 100 UNIT/ML SUBCUT SCH ×4 (07:40→21:15)
[2020-09-21] MEDS: NYSTATIN 500,000 UNIT/5 ML UDCUP SWISH/SWAL SCH ×4 (09:36→20:00)
[2020-09-21] MEDS: POLYETHYLENE GLYCOL POWDER 17 GM PACK PO PRN (09:36)
[2020-09-21] MEDS: BUDESONIDE/FORMOTEROL 160-4.5 INHALER 6 GM INH SCH ×2 (09:36→20:00)
[2020-09-21] MEDS: LEVOFLOXACIN 500 MG TABLET PO SCH (09:36)
[2020-09-21] MEDS: BICALUTAMIDE 50 MG TABLET PO SCH (09:36)
[2020-09-21] MEDS: ASCORBIC ACID 500 MG TABLET PO SCH (09:36)
[2020-09-21] MEDS: FLUTICASONE 50 MCG NASAL SPRAY 16 GM BOTTLE BOTH NARES SCH ×2 (09:36→20:00)
[2020-09-21] MEDS: DESITIN 4OZ/NYSTATIN 15 GRAM MIXTURE PASTE TOP SCH ×2 (09:36→20:39)
[2020-09-21] MEDS: APIXABAN 5 MG TABLET PO SCH ×2 (09:36→20:00)
[2020-09-21] MEDS: PANTOPRAZOLE 40 MG TABLET PO SCH ×2 (09:36→20:00)
[2020-09-21] MEDS: ZINC SULFATE 220 MG CAPSULE PO SCH (09:36)
[2020-09-21] MEDS: SODIUM HYPOCHLORITE 0.25% IRRIG 473 ML BOTTLE TOP SCH (09:36)
[2020-09-22] MEDS: ALBUTEROL INHALER 18 GM INH SCH ×4 (00:15→20:06)
[2020-09-22 05:43] LABS: Basophils % 0.1 % (0.0-0.8); Eosinophils # 0.1 10*3/uL (0.0-0.87); Eosinophils % 0.9 % (0.00-10.9); Hematocrit 30.3 VOL% (42.0-52.0); Hemoglobin 9.7 GM/DL (14.0-18.0); Immature Granulocytes % 0.4 %; Immature Granulocytes Absolute 0.03 #; Lymphocytes # 1.1 10*3/uL (1.4-4.0); Lymphocytes % 14.2 % (21.2-54.2); Mean Corpuscular Volume 94.1 FL (87-102); Mean Platelet Volume 10.3 FL (9.6-12.0); Monocytes % 8.3 % (1.7-12.7); Neutrophils % 76.1 % (38.7-73.9); Platelet Count 109 T/CUMM (130-400); Red Blood Count 3.22 MC/CUMM (3.8-5.5); Red Cell Distribution Width 17.1 % (9.3-17.3); White Blood Count 7.6 T/CUMM (4-12)
[2020-09-22 06:05] LABS: Hypochromasia 1+; Microcytosis 1+; Platelet Estimate Decreased
[2020-09-22 06:16] LABS: Calcium 8.5 MG/DL (8.5-10.1); Osmolality,Calculated 281.4 MOS/KG (273-304)
[2020-09-22] MEDS: INSULIN REGULAR 100 UNIT/ML SUBCUT SCH ×4 (09:57→20:05)
[2020-09-22] MEDS: BICALUTAMIDE 50 MG TABLET PO SCH (09:57)
[2020-09-22] MEDS: SODIUM HYPOCHLORITE 0.25% IRRIG 473 ML BOTTLE TOP SCH (09:57)
[2020-09-22] MEDS: DESITIN 4OZ/NYSTATIN 15 GRAM MIXTURE PASTE TOP SCH ×2 (09:58→20:17)
[2020-09-22] MEDS: PANTOPRAZOLE 40 MG TABLET PO SCH ×2 (09:58→20:17)
[2020-09-22] MEDS: LEVOFLOXACIN 500 MG TABLET PO SCH (09:58)
[2020-09-22] MEDS: FLUTICASONE 50 MCG NASAL SPRAY 16 GM BOTTLE BOTH NARES SCH ×2 (09:58→20:06)
[2020-09-22] MEDS: NYSTATIN 500,000 UNIT/5 ML UDCUP SWISH/SWAL SCH ×4 (09:58→20:39)
[2020-09-22] MEDS: APIXABAN 5 MG TABLET PO SCH ×2 (09:58→20:38)
[2020-09-22] MEDS: BUDESONIDE/FORMOTEROL 160-4.5 INHALER 6 GM INH SCH ×2 (09:58→20:06)
[2020-09-22] MEDS: ASCORBIC ACID 500 MG TABLET PO SCH (09:58)
[2020-09-23] MEDS: ALBUTEROL INHALER 18 GM INH SCH ×4 (01:34→20:38)
[2020-09-23 05:44] LABS: Basophils % 0.2 % (0.0-0.8); Eosinophils # 0.1 10*3/uL (0.0-0.87); Eosinophils % 2.2 % (0.00-10.9); Hematocrit 28.6 VOL% (42.0-52.0); Hemoglobin 9.1 GM/DL (14.0-18.0); Immature Granulocytes % 0.6 %; Immature Granulocytes Absolute 0.04 #; Lymphocytes % 15.4 % (21.2-54.2); Mean Corpuscular HGB Conc 31.8 GM/DL (32-36); Mean Corpuscular Volume 94.4 FL (87-102); Mean Platelet Volume 10.7 FL (9.6-12.0); Monocytes % 8.8 % (1.7-12.7); Neutrophils % 72.8 % (38.7-73.9); Platelet Count 112 T/CUMM (130-400); Red Blood Count 3.03 MC/CUMM (3.8-5.5); White Blood Count 6.4 T/CUMM (4-12)
[2020-09-23 06:02] LABS: Hypochromasia 1+
[2020-09-23 06:03] LABS: Microcytosis 1+; Platelet Estimate Decreased; Polychromasia Slight; Spherocytes Slight
[2020-09-23 06:12] LABS: Calcium 8.4 MG/DL (8.5-10.1)
[2020-09-23] MEDS: INSULIN REGULAR 100 UNIT/ML SUBCUT SCH ×4 (09:18→20:39)
[2020-09-23] MEDS: PANTOPRAZOLE 40 MG TABLET PO SCH ×2 (09:19→20:39)
[2020-09-23] MEDS: LEVOFLOXACIN 500 MG TABLET PO SCH (09:19)
[2020-09-23] MEDS: ASCORBIC ACID 500 MG TABLET PO SCH (09:19)
[2020-09-23] MEDS: ZINC SULFATE 220 MG CAPSULE PO SCH (09:19)
[2020-09-23] MEDS: NYSTATIN 500,000 UNIT/5 ML UDCUP SWISH/SWAL SCH ×4 (09:19→20:39)
[2020-09-23] MEDS: FLUTICASONE 50 MCG NASAL SPRAY 16 GM BOTTLE BOTH NARES SCH ×2 (09:19→20:38)
[2020-09-23] MEDS: SODIUM HYPOCHLORITE 0.25% IRRIG 473 ML BOTTLE TOP SCH (09:19)
[2020-09-23] MEDS: BICALUTAMIDE 50 MG TABLET PO SCH (09:19)
[2020-09-23] MEDS: DESITIN 4OZ/NYSTATIN 15 GRAM MIXTURE PASTE TOP SCH ×2 (09:19→20:40)
[2020-09-23] MEDS: APIXABAN 5 MG TABLET PO SCH ×2 (09:19→20:38)
[2020-09-23] MEDS: BUDESONIDE/FORMOTEROL 160-4.5 INHALER 6 GM INH SCH ×2 (09:19→20:40)
[2020-09-24] MEDS: ALBUTEROL INHALER 18 GM INH SCH ×3 (01:07→12:58)
[2020-09-24 05:52] LABS: Basophils % 0.2 % (0.0-0.8); Eosinophils # 0.2 10*3/uL (0.0-0.87); Eosinophils % 3.1 % (0.00-10.9); Hematocrit 28.5 VOL% (42.0-52.0); Hemoglobin 9.1 GM/DL (14.0-18.0); Immature Granulocytes % 0.5 %; Immature Granulocytes Absolute 0.03 #; Lymphocytes % 16.5 % (21.2-54.2); Mean Corpuscular HGB Conc 31.9 GM/DL (32-36); Mean Corpuscular Volume 94.1 FL (87-102); Monocytes % 9.8 % (1.7-12.7); Neutrophils % 69.9 % (38.7-73.9); Platelet Count 111 T/CUMM (130-400); Red Blood Count 3.03 MC/CUMM (3.8-5.5); Red Cell Distribution Width 16.9 % (9.3-17.3); White Blood Count 5.8 T/CUMM (4-12)
[2020-09-24 06:20] LABS: Eosinophils 5 % (0-10); Hypochromasia 1+; Lymphocytes 4 % (20-55); Microcytosis 1+; Nucleated Red Blood Cells 1 (0-5); Platelet Estimate Decreased; Segmented Neutrophils 86 % (50-85); Total Cells Counted 100
[2020-09-24] MEDS: INSULIN REGULAR 100 UNIT/ML SUBCUT SCH ×4 (08:23→20:30)
[2020-09-24 08:46] LABS: Total Protein (Chem) 5.8 G/DL (6.4-8.3)
[2020-09-24 09:05] LABS: Albumin (SPE) 2.9 G/DL (3.2-5.3); Albumin (SPE) Rel % 50.5 %; Alpha 1 (SPE) 0.4 G/DL (0.1-0.4); Alpha 1 (SPE) Rel % 6.9 %; Alpha 2 (SPE) 0.9 G/DL (0.4-1.0); Alpha 2 (SPE) Rel % 15.2 %; Beta (SPE) 0.7 G/DL (0.5-1.1); Beta (SPE) Rel % 11.9 %; Gamma (SPE) 0.9 G/DL (0.7-1.7); Gamma (SPE) Rel % 15.5 %
[2020-09-24] MEDS: BICALUTAMIDE 50 MG TABLET PO SCH (09:17)
[2020-09-24] MEDS: DESITIN 4OZ/NYSTATIN 15 GRAM MIXTURE PASTE TOP SCH (09:17)
[2020-09-24] MEDS: APIXABAN 5 MG TABLET PO SCH ×2 (09:17→21:24)
[2020-09-24] MEDS: PANTOPRAZOLE 40 MG TABLET PO SCH ×2 (09:17→21:24)
[2020-09-24] MEDS: SODIUM HYPOCHLORITE 0.25% IRRIG 473 ML BOTTLE TOP SCH (09:17)
[2020-09-24] MEDS: ASCORBIC ACID 500 MG TABLET PO SCH (09:17)
[2020-09-24] MEDS: BUDESONIDE/FORMOTEROL 160-4.5 INHALER 6 GM INH SCH ×2 (09:17→21:24)
[2020-09-24] MEDS: FLUTICASONE 50 MCG NASAL SPRAY 16 GM BOTTLE BOTH NARES SCH (09:17)
[2020-09-24] MEDS: LEVOFLOXACIN 500 MG TABLET PO SCH (09:17)
[2020-09-24] MEDS: NYSTATIN 500,000 UNIT/5 ML UDCUP SWISH/SWAL SCH ×4 (09:17→21:24)
[2020-09-25] MEDS: FLUTICASONE 50 MCG NASAL SPRAY 16 GM BOTTLE BOTH NARES SCH ×3 (00:11→20:37)
[2020-09-25] MEDS: DESITIN 4OZ/NYSTATIN 15 GRAM MIXTURE PASTE TOP SCH ×3 (00:12→20:38)
[2020-09-25] MEDS: ALBUTEROL INHALER 18 GM INH SCH (00:14)
[2020-09-25] MEDS: ALBUTEROL 2.5 MG/3 ML NEB RESP TX SCH ×4 (00:21→19:32)
[2020-09-25] MEDS: INSULIN REGULAR 100 UNIT/ML SUBCUT SCH ×4 (07:53→20:37)
[2020-09-25] MEDS: BUDESONIDE/FORMOTEROL 160-4.5 INHALER 6 GM INH SCH ×2 (08:54→20:37)
[2020-09-25] MEDS: BICALUTAMIDE 50 MG TABLET PO SCH (08:54)
[2020-09-25] MEDS: APIXABAN 5 MG TABLET PO SCH ×2 (08:54→20:36)
[2020-09-25] MEDS: PANTOPRAZOLE 40 MG TABLET PO SCH ×2 (08:54→20:36)
[2020-09-25] MEDS: NYSTATIN 500,000 UNIT/5 ML UDCUP SWISH/SWAL SCH ×4 (08:54→20:36)
[2020-09-25] MEDS: ASCORBIC ACID 500 MG TABLET PO SCH (08:54)
[2020-09-25] MEDS: LEVOFLOXACIN 500 MG TABLET PO SCH (08:54)
[2020-09-25] MEDS: SODIUM HYPOCHLORITE 0.25% IRRIG 473 ML BOTTLE TOP SCH (08:56)
[2020-09-25 13:06] LABS: Total Protein 24 Hr Ur Result 1344 MG/24HR (0-149.1); Total Volume,Urine 800 ML (400-2000)
[2020-09-25 13:09] LABS: 24 Hr Protein (Bench) 1344 MG/24HR (0-149.1)
[2020-09-26] MEDS: ALBUTEROL 2.5 MG/3 ML NEB RESP TX SCH ×4 (01:25→20:05)
[2020-09-26] MEDS: INSULIN REGULAR 100 UNIT/ML SUBCUT SCH ×4 (09:33→20:20)
[2020-09-26] MEDS: ASCORBIC ACID 500 MG TABLET PO SCH (09:33)
[2020-09-26] MEDS: NYSTATIN 500,000 UNIT/5 ML UDCUP SWISH/SWAL SCH ×2 (09:33→13:09)
[2020-09-26] MEDS: BICALUTAMIDE 50 MG TABLET PO SCH (09:33)
[2020-09-26] MEDS: BUDESONIDE/FORMOTEROL 160-4.5 INHALER 6 GM INH SCH ×2 (09:34→20:21)
[2020-09-26] MEDS: FLUTICASONE 50 MCG NASAL SPRAY 16 GM BOTTLE BOTH NARES SCH ×2 (09:34→20:21)
[2020-09-26] MEDS: APIXABAN 5 MG TABLET PO SCH ×2 (09:34→20:19)
[2020-09-26] MEDS: PANTOPRAZOLE 40 MG TABLET PO SCH ×2 (09:34→20:19)
[2020-09-26] MEDS: DESITIN 4OZ/NYSTATIN 15 GRAM MIXTURE PASTE TOP SCH ×2 (09:42→23:30)
[2020-09-26] MEDS: SODIUM HYPOCHLORITE 0.25% IRRIG 473 ML BOTTLE TOP SCH ×2 (13:09→20:30)
[2020-09-27] MEDS: ALBUTEROL 2.5 MG/3 ML NEB RESP TX SCH ×4 (02:02→18:57)
[2020-09-27] MEDS: APIXABAN 5 MG TABLET PO SCH ×2 (08:22→20:09)
[2020-09-27] MEDS: BICALUTAMIDE 50 MG TABLET PO SCH (08:24)
[2020-09-27] MEDS: ASCORBIC ACID 500 MG TABLET PO SCH (08:25)
[2020-09-27] MEDS: PANTOPRAZOLE 40 MG TABLET PO SCH ×2 (08:26→20:09)
[2020-09-27] MEDS: INSULIN REGULAR 100 UNIT/ML SUBCUT SCH ×4 (08:28→20:10)
[2020-09-27] MEDS: BUDESONIDE/FORMOTEROL 160-4.5 INHALER 6 GM INH SCH ×2 (08:45→20:09)
[2020-09-27] MEDS: FLUTICASONE 50 MCG NASAL SPRAY 16 GM BOTTLE BOTH NARES SCH ×2 (08:45→20:09)
[2020-09-27] MEDS: DESITIN 4OZ/NYSTATIN 15 GRAM MIXTURE PASTE TOP SCH ×2 (08:45→20:09)
[2020-09-27] MEDS: SODIUM HYPOCHLORITE 0.25% IRRIG 473 ML BOTTLE TOP SCH (08:45)
[2020-09-28] MEDS: ALBUTEROL 2.5 MG/3 ML NEB RESP TX SCH ×4 (00:10→19:17)
[2020-09-28 04:28] LABS: Basophils % 0.2 % (0.0-0.8); Eosinophils # 0.3 10*3/uL (0.0-0.87); Eosinophils % 6.2 % (0.00-10.9); Hematocrit 28.4 VOL% (42.0-52.0); Immature Granulocytes % 0.6 %; Immature Granulocytes Absolute 0.03 #; Lymphocytes # 1.3 10*3/uL (1.4-4.0); Lymphocytes % 26.8 % (21.2-54.2); Mean Corpuscular HGB Conc 31.7 GM/DL (32-36); Mean Corpuscular Volume 93.1 FL (87-102); Mean Platelet Volume 9.6 FL (9.6-12.0); Monocytes % 10.4 % (1.7-12.7); Neutrophils % 55.8 % (38.7-73.9); Platelet Count 142 T/CUMM (130-400); Red Blood Count 3.05 MC/CUMM (3.8-5.5); Red Cell Distribution Width 17.2 % (9.3-17.3); White Blood Count 4.8 T/CUMM (4-12)
[2020-09-28 04:59] LABS: Hypochromasia 1+; Microcytosis 1+; Platelet Estimate Adequate
[2020-09-28 05:05] LABS: Calcium 8.2 MG/DL (8.5-10.1); Osmolality,Calculated 283.1 MOS/KG (273-304)
[2020-09-28] MEDS: DESITIN 4OZ/NYSTATIN 15 GRAM MIXTURE PASTE TOP SCH ×2 (08:32→20:55)
[2020-09-28] MEDS: BICALUTAMIDE 50 MG TABLET PO SCH (08:32)
[2020-09-28] MEDS: ASCORBIC ACID 500 MG TABLET PO SCH (08:32)
[2020-09-28] MEDS: APIXABAN 5 MG TABLET PO SCH ×2 (08:32→20:56)
[2020-09-28] MEDS: PANTOPRAZOLE 40 MG TABLET PO SCH ×2 (08:32→20:54)
[2020-09-28] MEDS: BUDESONIDE/FORMOTEROL 160-4.5 INHALER 6 GM INH SCH ×2 (08:32→20:55)
[2020-09-28] MEDS: FLUTICASONE 50 MCG NASAL SPRAY 16 GM BOTTLE BOTH NARES SCH ×2 (08:32→20:55)
[2020-09-28] MEDS: INSULIN REGULAR 100 UNIT/ML SUBCUT SCH ×4 (08:33→21:09)
[2020-09-28] MEDS: POTASSIUM CHLORIDE 20 MEQ TABLET PO PRN ×4 (09:02→18:09)
[2020-09-28] MEDS: SODIUM HYPOCHLORITE 0.25% IRRIG 473 ML BOTTLE TOP SCH (11:08)
[2020-09-29] MEDS: ALBUTEROL 2.5 MG/3 ML NEB RESP TX SCH ×2 (00:43→07:00)
[2020-09-29 06:05] LABS: Calcium 8.4 MG/DL (8.5-10.1); Osmolality,Calculated 288.7 MOS/KG (273-304)
[2020-09-29] MEDS: INSULIN REGULAR 100 UNIT/ML SUBCUT SCH ×2 (08:31→12:05)
[2020-09-29] MEDS: BICALUTAMIDE 50 MG TABLET PO SCH (08:42)
[2020-09-29] MEDS: APIXABAN 5 MG TABLET PO SCH (08:42)
[2020-09-29] MEDS: ASCORBIC ACID 500 MG TABLET PO SCH (08:42)
[2020-09-29] MEDS: SODIUM HYPOCHLORITE 0.25% IRRIG 473 ML BOTTLE TOP SCH (08:42)
[2020-09-29] MEDS: PANTOPRAZOLE 40 MG TABLET PO SCH (08:42)
[2020-09-29] MEDS: FLUTICASONE 50 MCG NASAL SPRAY 16 GM BOTTLE BOTH NARES SCH (08:42)
[2020-09-29] MEDS: DESITIN 4OZ/NYSTATIN 15 GRAM MIXTURE PASTE TOP SCH (08:42)
[2020-09-29] MEDS: BUDESONIDE/FORMOTEROL 160-4.5 INHALER 6 GM INH SCH (08:42)
[2020-09-29 11:43] VITALS: BP 115/70
[2020-09-29] MEDS: ACETAMINOPHEN 325 MG TABLET PO PRN (12:36)
== END 2020-09-29 14:58 | DRG 166 ==
LOC: EDBD → EDUNIT# → N.ED 16:05 → SUATTDRO 18:41 → N.EDINP 18:41 → N.2E 20:11 → N.CC 09-05 06:28 → N.2E 09-09 14:13 → N.CC 09-18 19:00 → N.2E 09-19 21:51 → N.5E 09-24 16:39
PROVIDERS: ADMIT Internal Medicine; ATTEND Internal Medicine

== ENCOUNTER 2020-09-30 12:33 | Inpatient (IN) ==
[2020-09-30] MEDS ORDERED: SODIUM CHLORIDE 0.9% 1,000 ML IV STA ×2 (13:10→13:38)
[2020-09-30 13:38] LABS: Basophils % 0.1 % (0.0-0.8); Eosinophils # 0.1 10*3/uL (0.0-0.87); Eosinophils % 1.5 % (0.00-10.9); Hematocrit 31.3 VOL% (42.0-52.0); Hemoglobin 9.9 GM/DL (14.0-18.0); Immature Granulocytes % 1.1 %; Immature Granulocytes Absolute 0.08 #; Lymphocytes # 1.3 10*3/uL (1.4-4.0); Lymphocytes % 17.7 % (21.2-54.2); Mean Corpuscular HGB Conc 31.6 GM/DL (32-36); Mean Corpuscular Volume 94.8 FL (87-102); Mean Platelet Volume 9.6 FL (9.6-12.0); Monocytes % 7.1 % (1.7-12.7); Neutrophils % 72.5 % (38.7-73.9); Platelet Count 176 T/CUMM (130-400); Red Cell Distribution Width 17.5 % (9.3-17.3); White Blood Count 7.4 T/CUMM (4-12)
[2020-09-30 14:01] LABS: Albumin 2.4 G/DL (3.4-5.0); Bilirubin,Total 0.8 MG/DL (0.2-1.0); Calcium 8.5 MG/DL (8.5-10.1); Osmolality,Calculated 287.1 MOS/KG (273-304); Total Protein 6.2 G/DL (6.4-8.3)
[2020-09-30] MEDS ORDERED: PIPERACILLIN/TAZOBACTAM 3,375 MG in SODIUM CHLORIDE 0.9% 100 ML IV STA (14:33)
[2020-09-30] MEDS ORDERED: SODIUM CHLORIDE 0.9% 100 ML IV ONE (14:35)
[2020-09-30] MEDS ORDERED: PIPERACILLIN/TAZOBACTAM 3,375 MG VIAL IV ONE (14:35)
[2020-09-30] MEDS ORDERED: SODIUM CHLORIDE 0.9% 800 ML IV STA (14:56)
[2020-09-30] MEDS: LEVOFLOXACIN INJ 750 MG in PREMIX 1 EACH IV SCH (15:20)
[2020-09-30 15:23] LABS: Bacteria,Urine Occasional /HPF (Few); Bilirubin,Urine Negative (Negative); Blood, Urine Negative (Negative); Glucose,Urine (UA) Negative (Negative); Hyaline Casts,Urine 11 /LPF (0-3); Ketones,Urine Negative (Negative); Mucus,Urine Occasional /LPF (Occasional); Nitrite,Urine Negative (Negative); Protein,Urine Negative; RBC,Urine 8 /HPF (0-4); Squamous Epithelial Cell,Urine Occasional /HPF (0-10); Urine Appearance CLEAR (Clear); Urine Color Yellow (Yellow); Urine Specific Gravity 1.014 (1.001-1.035); WBC,Urine 2 /HPF (0-6)
[2020-09-30] MEDS ORDERED: GLUCAGON 1 MG VIAL IM PRN ×2 (16:10)
[2020-09-30] MEDS ORDERED: ACETAMINOPHEN 325 MG TABLET PO PRN (16:10)
[2020-09-30] MEDS ORDERED: ONDANSETRON 4 MG/2 ML VIAL IV PRN (16:10)
[2020-09-30] MEDS ORDERED: DEXTROSE 50% 25 GM/50 ML VIAL IV PRN ×2 (16:10)
[2020-09-30] MEDS ORDERED: traMADol 50 MG TABLET PO PRN (16:16)
[2020-09-30] MEDS ORDERED: DICLOFENAC SODIUM 75 MG TABLET PO PRN (16:16)
[2020-09-30] MEDS ORDERED: VANCOMYCIN INJ 1,500 MG in SODIUM CHLORIDE 0.9% 250 ML IV SCH (16:30)
[2020-09-30] MEDS: INSULIN REGULAR 100 UNIT/ML SUBCUT SCH ×2 (16:30→23:00)
[2020-09-30] MEDS: PANTOPRAZOLE 40 MG TABLET PO SCH (22:25)
[2020-09-30] MEDS: BUDESONIDE/FORMOTEROL 160-4.5 INHALER 6 GM INH SCH (22:25)
[2020-09-30] MEDS: APIXABAN 5 MG TABLET PO SCH (22:25)
[2020-09-30] MEDS: DESITIN 4OZ/NYSTATIN 15 GRAM MIXTURE PASTE TOP SCH (22:25)
[2020-09-30] MEDS: FLUTICASONE 50 MCG NASAL SPRAY 16 GM BOTTLE BOTH NARES SCH (22:25)
[2020-09-30] MEDS: VANCOMYCIN INJ 1,250 MG in SODIUM CHLORIDE 0.9% 250 ML IV SCH (22:26)
[2020-09-30] MEDS: PIPERACILLIN/TAZOBACTAM 3,375 MG in SODIUM CHLORIDE 0.9% 100 ML IV SCH (23:45)
[2020-10-01] MEDS: PIPERACILLIN/TAZOBACTAM 3,375 MG in SODIUM CHLORIDE 0.9% 100 ML IV SCH ×2 (06:35→18:06)
[2020-10-01 07:15] LABS: Basophils % 0.2 % (0.0-0.8); Eosinophils # 0.2 10*3/uL (0.0-0.87); Eosinophils % 2.6 % (0.00-10.9); Hematocrit 27.3 VOL% (42.0-52.0); Hemoglobin 8.6 GM/DL (14.0-18.0); Immature Granulocytes Absolute 0.06 #; Lymphocytes # 1.5 10*3/uL (1.4-4.0); Lymphocytes % 25.2 % (21.2-54.2); Mean Corpuscular HGB Conc 31.5 GM/DL (32-36); Mean Corpuscular Volume 95.1 FL (87-102); Mean Platelet Volume 10.1 FL (9.6-12.0); Monocytes % 8.4 % (1.7-12.7); Neutrophils % 62.6 % (38.7-73.9); Platelet Count 173 T/CUMM (130-400); Red Blood Count 2.87 MC/CUMM (3.8-5.5); Red Cell Distribution Width 17.8 % (9.3-17.3); White Blood Count 5.8 T/CUMM (4-12)
[2020-10-01 07:41] LABS: Albumin 2.1 G/DL (3.4-5.0); Bilirubin,Total 0.7 MG/DL (0.2-1.0); Osmolality,Calculated 287.7 MOS/KG (273-304); Total Protein 5.6 G/DL (6.4-8.3)
[2020-10-01] MEDS ORDERED: PANTOPRAZOLE 40 MG TABLET PO SCH (09:00)
[2020-10-01] MEDS: VANCOMYCIN INJ 1,250 MG in SODIUM CHLORIDE 0.9% 250 ML IV SCH ×2 (09:19→21:50)
[2020-10-01] MEDS: ASCORBIC ACID 500 MG TABLET PO SCH (09:20)
[2020-10-01] MEDS: PANTOPRAZOLE 40 MG TABLET PO SCH ×2 (09:20→20:47)
[2020-10-01] MEDS: POTASSIUM CHLORIDE 20 MEQ TABLET PO PRN (09:21)
[2020-10-01] MEDS: TERAZOSIN 5 MG CAPSULE PO SCH (09:21)
[2020-10-01] MEDS: BICALUTAMIDE 50 MG TABLET PO SCH (09:21)
[2020-10-01] MEDS: APIXABAN 5 MG TABLET PO SCH ×2 (09:21→20:47)
[2020-10-01] MEDS: FUROSEMIDE 40 MG TABLET PO SCH (09:21)
[2020-10-01] MEDS: FLUTICASONE 50 MCG NASAL SPRAY 16 GM BOTTLE BOTH NARES SCH ×2 (09:24→20:47)
[2020-10-01] MEDS: BUDESONIDE/FORMOTEROL 160-4.5 INHALER 6 GM INH SCH ×2 (09:24→20:47)
[2020-10-01] MEDS: DESITIN 4OZ/NYSTATIN 15 GRAM MIXTURE PASTE TOP SCH ×2 (09:24→20:47)
[2020-10-01] MEDS: INSULIN REGULAR 100 UNIT/ML SUBCUT SCH ×4 (09:25→20:47)
[2020-10-01] MEDS: LEVOFLOXACIN INJ 750 MG in PREMIX 1 EACH IV SCH (15:22)
[2020-10-01] MEDS: SODIUM HYPOCHLORITE 0.25% IRRIG 473 ML BOTTLE TOP SCH (17:50)
[2020-10-02] MEDS: PIPERACILLIN/TAZOBACTAM 3,375 MG in SODIUM CHLORIDE 0.9% 100 ML IV SCH ×3 (00:27→20:53)
[2020-10-02] MEDS: POTASSIUM CHLORIDE 20 MEQ TABLET PO PRN ×6 (06:53→23:11)
[2020-10-02 08:12] LABS: Basophils % 0.3 % (0.0-0.8); Eosinophils # 0.2 10*3/uL (0.0-0.87); Hematocrit 26.1 VOL% (42.0-52.0); Hemoglobin 8.4 GM/DL (14.0-18.0); Immature Granulocytes % 1.4 %; Immature Granulocytes Absolute 0.08 #; Lymphocytes # 1.8 10*3/uL (1.4-4.0); Lymphocytes % 30.8 % (21.2-54.2); Mean Corpuscular HGB Conc 32.2 GM/DL (32-36); Mean Corpuscular Volume 93.9 FL (87-102); Mean Platelet Volume 9.4 FL (9.6-12.0); Neutrophils % 53.5 % (38.7-73.9); Platelet Count 165 T/CUMM (130-400); Red Blood Count 2.78 MC/CUMM (3.8-5.5); White Blood Count 5.9 T/CUMM (4-12)
[2020-10-02 08:32] LABS: Osmolality,Calculated 282.1 MOS/KG (273-304)
[2020-10-02 08:34] LABS: Eosinophils 4 % (0-10); Hypochromasia 1+; Lymphocytes 32 % (20-55); Microcytosis 1+; Segmented Neutrophils 57 % (50-85); Total Cells Counted 100
[2020-10-02 08:36] LABS: Ovalocytes Slight; Platelet Estimate Adequate
[2020-10-02] MEDS: BICALUTAMIDE 50 MG TABLET PO SCH (08:44)
[2020-10-02] MEDS: INSULIN REGULAR 100 UNIT/ML SUBCUT SCH ×4 (08:44→20:58)
[2020-10-02] MEDS: PANTOPRAZOLE 40 MG TABLET PO SCH ×2 (08:45→20:57)
[2020-10-02] MEDS: TERAZOSIN 5 MG CAPSULE PO SCH (08:45)
[2020-10-02] MEDS: FUROSEMIDE 40 MG TABLET PO SCH (08:45)
[2020-10-02] MEDS: APIXABAN 5 MG TABLET PO SCH ×2 (08:45→20:57)
[2020-10-02] MEDS: ASCORBIC ACID 500 MG TABLET PO SCH (08:45)
[2020-10-02] MEDS: SODIUM HYPOCHLORITE 0.25% IRRIG 473 ML BOTTLE TOP SCH (08:46)
[2020-10-02] MEDS: DESITIN 4OZ/NYSTATIN 15 GRAM MIXTURE PASTE TOP SCH ×2 (08:46→20:57)
[2020-10-02] MEDS: BUDESONIDE/FORMOTEROL 160-4.5 INHALER 6 GM INH SCH ×2 (08:46→20:57)
[2020-10-02] MEDS: FLUTICASONE 50 MCG NASAL SPRAY 16 GM BOTTLE BOTH NARES SCH ×2 (08:47→20:58)
[2020-10-02] MEDS: VANCOMYCIN INJ 1,250 MG in SODIUM CHLORIDE 0.9% 250 ML IV SCH ×2 (08:47→20:39)
[2020-10-02] MEDS ORDERED: MAGNESIUM SULF RIDER 4 GM in PREMIX 1 EACH IV ONE (15:00)
[2020-10-02] MEDS: LEVOFLOXACIN INJ 750 MG in PREMIX 1 EACH IV SCH (15:38)
[2020-10-03] MEDS: PIPERACILLIN/TAZOBACTAM 3,375 MG in SODIUM CHLORIDE 0.9% 100 ML IV SCH (03:22)
[2020-10-03 05:52] LABS: Basophils % 0.2 % (0.0-0.8); Eosinophils # 0.1 10*3/uL (0.0-0.87); Eosinophils % 2.3 % (0.00-10.9); Hematocrit 26.5 VOL% (42.0-52.0); Hemoglobin 8.5 GM/DL (14.0-18.0); Immature Granulocytes % 1.8 %; Immature Granulocytes Absolute 0.11 #; Lymphocytes # 1.8 10*3/uL (1.4-4.0); Lymphocytes % 29.8 % (21.2-54.2); Mean Corpuscular HGB Conc 32.1 GM/DL (32-36); Monocytes % 11.5 % (1.7-12.7); Neutrophils % 54.4 % (38.7-73.9); Platelet Count 179 T/CUMM (130-400); Red Blood Count 2.82 MC/CUMM (3.8-5.5); Red Cell Distribution Width 17.9 % (9.3-17.3)
[2020-10-03 06:26] LABS: Eosinophils 1 % (0-10); Hypochromasia 1+; Lymphocytes 15 % (20-55); Microcytosis 1+; Platelet Estimate Adequate; Segmented Neutrophils 66 % (50-85); Total Cells Counted 100
[2020-10-03 06:27] LABS: Ovalocytes Slight
[2020-10-03 06:28] LABS: Calcium 8.2 MG/DL (8.5-10.1); Osmolality,Calculated 281.1 MOS/KG (273-304)
[2020-10-03] MEDS: INSULIN REGULAR 100 UNIT/ML SUBCUT SCH ×4 (08:23→20:51)
[2020-10-03] MEDS: TERAZOSIN 5 MG CAPSULE PO SCH (08:25)
[2020-10-03] MEDS: ASCORBIC ACID 500 MG TABLET PO SCH (08:25)
[2020-10-03] MEDS: DESITIN 4OZ/NYSTATIN 15 GRAM MIXTURE PASTE TOP SCH ×2 (08:26→20:50)
[2020-10-03] MEDS: FLUTICASONE 50 MCG NASAL SPRAY 16 GM BOTTLE BOTH NARES SCH ×2 (08:26→20:50)
[2020-10-03] MEDS: APIXABAN 5 MG TABLET PO SCH ×2 (08:26→20:51)
[2020-10-03] MEDS: SODIUM HYPOCHLORITE 0.25% IRRIG 473 ML BOTTLE TOP SCH (08:26)
[2020-10-03] MEDS: PANTOPRAZOLE 40 MG TABLET PO SCH ×2 (08:26→20:51)
[2020-10-03] MEDS: FUROSEMIDE 40 MG TABLET PO SCH (08:26)
[2020-10-03] MEDS: BICALUTAMIDE 50 MG TABLET PO SCH (08:26)
[2020-10-03] MEDS: BUDESONIDE/FORMOTEROL 160-4.5 INHALER 6 GM INH SCH ×2 (08:26→20:50)
[2020-10-03] MEDS ORDERED: VANCOMYCIN INJ 1,250 MG in SODIUM CHLORIDE 0.9% 250 ML IV SCH (09:00)
[2020-10-03] MEDS: AMOXICILLIN/CLAV 875 MG TABLET PO SCH (20:51)
[2020-10-04 05:52] LABS: Basophils % 0.4 % (0.0-0.8); Eosinophils # 0.2 10*3/uL (0.0-0.87); Eosinophils % 2.8 % (0.00-10.9); Hemoglobin 8.7 GM/DL (14.0-18.0); Immature Granulocytes % 1.9 %; Immature Granulocytes Absolute 0.13 #; Lymphocytes # 2.1 10*3/uL (1.4-4.0); Lymphocytes % 31.2 % (21.2-54.2); Mean Corpuscular HGB Conc 32.2 GM/DL (32-36); Mean Corpuscular Volume 95.1 FL (87-102); Mean Platelet Volume 9.9 FL (9.6-12.0); Monocytes % 11.2 % (1.7-12.7); Neutrophils % 52.5 % (38.7-73.9); Platelet Count 180 T/CUMM (130-400); Red Blood Count 2.84 MC/CUMM (3.8-5.5); Red Cell Distribution Width 18.4 % (9.3-17.3); White Blood Count 6.8 T/CUMM (4-12)
[2020-10-04 06:05] LABS: Calcium 8.4 MG/DL (8.5-10.1)
[2020-10-04 06:59] LABS: Anisocytosis 2+; Band Neutrophils 7 % (0-10); Eosinophils 4 % (0-10); Lymphocytes 32 % (20-55); Metamyelocytes 3 %; Myelocytes 1 %; Platelet Estimate Normal; Segmented Neutrophils 43 % (50-85); Tear Drop Cells Few; Total Cells Counted 100
[2020-10-04] MEDS: INSULIN REGULAR 100 UNIT/ML SUBCUT SCH ×2 (08:05→11:50)
[2020-10-04] MEDS: BICALUTAMIDE 50 MG TABLET PO SCH (08:51)
[2020-10-04] MEDS: AMOXICILLIN/CLAV 875 MG TABLET PO SCH (08:51)
[2020-10-04] MEDS: TERAZOSIN 5 MG CAPSULE PO SCH (08:51)
[2020-10-04] MEDS: ASCORBIC ACID 500 MG TABLET PO SCH (08:51)
[2020-10-04] MEDS: PANTOPRAZOLE 40 MG TABLET PO SCH (08:52)
[2020-10-04] MEDS: APIXABAN 5 MG TABLET PO SCH (08:52)
[2020-10-04] MEDS: FUROSEMIDE 40 MG TABLET PO SCH (08:52)
[2020-10-04] MEDS: POTASSIUM CHLORIDE 20 MEQ TABLET PO PRN (08:52)
[2020-10-04] MEDS: DESITIN 4OZ/NYSTATIN 15 GRAM MIXTURE PASTE TOP SCH (08:56)
[2020-10-04] MEDS: SODIUM HYPOCHLORITE 0.25% IRRIG 473 ML BOTTLE TOP SCH (08:56)
[2020-10-04] MEDS: FLUTICASONE 50 MCG NASAL SPRAY 16 GM BOTTLE BOTH NARES SCH (08:57)
[2020-10-04] MEDS: BUDESONIDE/FORMOTEROL 160-4.5 INHALER 6 GM INH SCH (08:57)
[2020-10-04 11:59] VITALS: BP 118/65
== END 2020-10-04 13:00 | DRG 871 ==
LOC: EDBD → EDUNIT# → N.ED 12:33 → N.EDINP 16:10 → N.5E 19:33
PROVIDERS: ADMIT Internal Medicine; ATTEND Internal Medicine